=== PATIENT | male | born 1970 | race Caucasian/White ===

== ENCOUNTER 2020-08-10 20:31 | Emergency (ER) | payer OTHER ==
[~2020-08-10] VITALS: Ht 177.8 cm; Wt 77.1 kg
[2020-08-10 20:42] VITALS: Ht 177.8 cm; Wt 77.1 kg
[2020-08-10 20:58] VITALS: BP 103/70
== END 2020-08-10 20:58 | disposition other institution (70) ==
LOC: ED 20:31
DX: Z02.89 Encounter for other administrative examinations (principal)